=== PATIENT | female | born 1985 | race Caucasian/White ===

== ENCOUNTER 2021-12-15 07:25 | Day surgery (SDC) | payer BC ==
[2021-12-12 17:04] VITALS: BMI 38.2
[2021-12-15] MEDS ORDERED: PROPOFOL 20 ML ONE (08:34)
[2021-12-15] MEDS ORDERED: MIDAZOLAM HCL 2 MG/2 ML SINGLE DOSE VIAL ONE (08:34)
[2021-12-15] MEDS ORDERED: ROCURONIUM BROMIDE 50 MG/5 ML SYRINGE ONE (08:34)
[2021-12-15] MEDS ORDERED: GUM MASTIC/STORAX/MSAL/ALCOHOL 1 DRP DROPSBTL MC ONE (08:44)
[2021-12-15] MEDS ORDERED: BUPIVACAINE HCL/EPINEPHRINE/PF 30 ML VIAL IJ ONE (08:44)
[2021-12-15] MEDS ORDERED: ceFAZolin SODIUM 1 GM VIAL ONE (09:29)
[2021-12-15] MEDS ORDERED: ONDANSETRON 4 MG/2 ML VIAL ONE ×3 (09:31→12:23)
[2021-12-15] MEDS ORDERED: DEXAMETHASONE SOD PHOSPHATE 4 MG/1 ML VIAL ONE (09:31)
[2021-12-15] MEDS ORDERED: NITROGLYCERIN 2% OINTMENT - 1GM PACKET TD ONE ×2 (11:08→12:03)
[2021-12-15] MEDS ORDERED: SEVOFLURANE 250 ML BTL ONE (11:38)
[2021-12-15] MEDS ORDERED: ONDANSETRON 4 MG/2 ML VIAL IVPUSH PRN (12:21)
[2021-12-15] MEDS ORDERED: oxyCODONE HCL 5 MG TABLET PO PRN (12:21)
[2021-12-15] MEDS ORDERED: ACETAMINOPHEN 1000 MG/100 ML BAG IVPB ONE (12:22)
[2021-12-15] MEDS ORDERED: ACETAMINOPHEN INJECTION 100 ML IVPB ONE (12:23)
[2021-12-15] MEDS ORDERED: FENTANYL CITRATE/PF 50 MCG/ML VIAL ONE ×3 (12:23→13:14)
[2021-12-15] MEDS ORDERED: LACTATED RINGERS SOLUTION 1,000 ML IV SCH (12:30)
[2021-12-15 14:30] VITALS: RESP 18; TEMP 97.4
[2021-12-15 14:59] VITALS: BP 134/62; PULSE 71
== END 2021-12-15 15:30 | disposition home or self-care (01) ==
LOC: FASU 07:25
PROVIDERS: ATTEND Plastic Surgery
PROC: 0HBV0ZZ Excision of Bilateral Breast, Open Approach (ICD-10-PCS; principal; 2021-12-15 09:44)
DX: N62 Hypertrophy of breast (principal)
CPT/HCPCS: 81025; 88305-TC; 94760